=== PATIENT | female | born 1975 | race African-American/Black ===

== ENCOUNTER 2022-02-16 17:25 | Emergency (ER) | payer OTHER ==
[~2022-02-16] VITALS: Ht 165.1 cm; Wt 102.1 kg
[2022-02-16 17:36] VITALS: BP 121/89
[2022-02-16] MEDS ORDERED: NACL 0.9% 2,000 ML IV ONE (19:15)
[2022-02-16 19:34] LABS: BASOPHILS % (AUTO) 0.7 % (0.0-2.0); EOSINOPHILS % (AUTO) 0.7 % (0.0-4.0); HEMATOCRIT 35.7 % (36-48); HEMOGLOBIN 11.7 g/dL (12.0-16.0); LYMPHOCYTES # (AUTO) 1.8 K/uL (2.5-16.5); LYMPHOCYTES % (AUTO) 34.2 % (20.5-51.1); MEAN CORPUSCULAR HEMOGLOBIN 29 pg (27-31); MEAN CORPUSCULAR HGB CONC 33 g/dL (33-37); MEAN CORPUSCULAR VOLUME 87.7 fL (80-94); MONOCYTES # (AUTO) 0.4 K/uL (0.8-1.0); MONOCYTES % (AUTO) 8.1 % (1.7-9.3); NEUTROPHILS % (AUTO) 56.3 % (42.2-75.2); PLATELET COUNT (AUTO) 452 K/uL (140-450); RED BLOOD CELL COUNT(AUTO) 4.07 MIL/uL (4.20-5.40); RED CELL DISTRIBUTION WIDTH 15.1 % (11.6-13.7); WHITE BLOOD COUNT (AUTO) 5.4 K/uL (4.8-10.8)
[2022-02-16 19:46] LABS: ALBUMIN 4.3 g/dL (3.4-5.0); ANION GAP 14.6 (8-16); CARBON DIOXIDE 23.6 mmol/L (21-32); CREATININE 0.9 mg/dL (0.6-1.3); POTASSIUM 3.2 mmol/L (3.5-5.1); TOTAL BILIRUBIN 0.6 mg/dL (0.0-1.0)
[2022-02-16] MEDS ORDERED: ONDANSETRON 4 MG/2 ML VIAL IVP ONE (21:00)
--- NOTE | 2022-02-16 21:20 | NUR ---
XRAY AT BEDSIDE
--- NOTE | 2022-02-16 21:22 | NUR ---
PT TAKEN TO CT
[2022-02-16 21:27] LABS: BILIRUBIN,URINE 1+ (NEGATIVE); BLOOD, URINE NEGATIVE (NEGATIVE); COLOR,URINE YELLOW (YELLOW); LEUKOCYTE ESTERASE ,URINE TRACE (NEGATIVE); NITRITE, URINE NEGATIVE (NEGATIVE); UGLUCOSE NEGATIVE (NEGATIVE)
[2022-02-16 21:28] LABS: APPEARANCE,URINE CLOUDY (CLEAR)
--- NOTE | 2022-02-16 21:34 | NUR ---
46 y/o female bibs from home, c/o abd pain, n/v/d with generalized weakness x1 day. denies anyone sick at home with same s/s. denies hematuria, dysuria, cough, sob, fever, or cough. skin is pink/dry/warm. a/ox4, gcs-15; unlabored breathing and speaking in full sentences; ambulatory w/o assistance. pmh: denies nka med: benadryl, tylenol
--- NOTE | 2022-02-16 21:34 | NUR ---
PT RETURNED FROM CT
[2022-02-16 21:54] LABS: RBC,URINE NONE SEEN /HPF (0-5)
[2022-02-16] MEDS ORDERED: cefTRIAXone 1,000 MG VIAL ONE (22:18)
[2022-02-16] MEDS ORDERED: CIPR500T4 PO (22:38)
[2022-02-16] MEDS ORDERED: ONDA-188 SL (22:38)
[2022-02-16] MEDS ORDERED: MORPHINE SULFATE 4 MG/ML SYR IVP ONE (22:55)
[2022-02-17] MEDS ORDERED: LORazepam 2 MG/ML VIAL IVP ONE (00:45)
[2022-02-17] MEDS ORDERED: diphenhydrAMINE 50 MG/ML VIAL IVP ONE (00:45)
[2022-02-17] MEDS ORDERED: HALOPERIDOL IM 5 MG/ML VIAL IVP ONE (00:45)
--- NOTE | 2022-02-17 02:37 | NUR ---
Patient appears to be resting comfortably in bed. Vital Signs within normal limits. Respirations even and unlabored. pt no longer vomiting or stating pain.
[2022-02-17 03:35] LABS: BARBITURATE, URINE NEGATIVE ng/ml (NEG <=200); BENZODIAZEPINE, URINE NEGATIVE ng/mL (NEG <=200)
[2022-02-17 03:36] LABS: CANNABINOID, URINE POSITIVE ng/mL (NEG <=50); COCAINE, URINE NEGATIVE ng/mL (NEG <=300); OPIATE, URINE NEGATIVE ng/mL (NEG <=2000); PHENCYCLIDINE SCREEN,URINE NEGATIVE ng/mL (NEG <=25)
[2022-02-17 06:33] VITALS: BP 120/86
--- NOTE | 2022-02-17 06:35 | NUR ---
Patient discharged with v/s stable. Written and verbal after care instructions given and explained. Patient alert, oriented and verbalized understanding of instructions. Ambulatory with steady gait. All questions addressed prior to discharge. ID band removed. Patient advised to follow up with PMD. Rx of CIPRO AND ZOFRAN given. Patient educated on indication of medication including possible reaction and side effects. Opportunity to ask questions provided and answered. VSS, A/OX4, AMBULATORY, UNLABORED BREATHING, AND CALM DEMEANOR.
== END 2022-02-17 06:35 | disposition home or self-care (01) ==
LOC: MED 17:25
DX: N39.0 Urinary tract infection, site not specified (principal); Z20.822 Contact with and (suspected) exposure to COVID-19; F12.90 Cannabis use, unspecified, uncomplicated; Z90.49 Acquired absence of other specified parts of digestive tract
CPT/HCPCS: 36415; 71045; 74176; 80053; 80305; 81001; 81025; 83605; 85025; 87040; 87086; 87426; 96361; 96365; 96375; 99285; J0696; J1200; J1630; J2060; J2270; J2405; Q0092; 93005; J7030